=== PATIENT | male | born 2000 | race Two or more races ===

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

== ENCOUNTER 2024-03-17 11:07 | Emergency (ER) | payer OTHER ==
[2024-03-17 11:21] VITALS: BP 122/53; PULSE 80; RESP 18; TEMP 97.9; BMI 19.8
== END 2024-03-17 12:49 | disposition home or self-care (01) ==
LOC: JER 11:07
DX: R06.02 Shortness of breath (principal); R07.89 Other chest pain
CPT/HCPCS: 71046-TC-FY; 99283-25